=== PATIENT | female | born 1950 | race African-American/Black ===

== ENCOUNTER → 2018-12-02 | Outpatient (CLI) | payer MEDICARE | END | disposition home or self-care (01) | LOC: CFH 09:42 | PROVIDERS: ATTEND Family Medicine | DX: Z12.31 Encounter for screening mammogram for malignant neoplasm of breast (principal) | CPT/HCPCS: 77067 ==

== ENCOUNTER → 2020-08-17 | Outpatient (CLI) | payer MEDICARE ==
[~2020-08-17] MED LIST: CITA40TA12 PO; ENAL20TA68 PO; TRAM50TA2 PO; TRAZ50TA66 PO
[2020-08-17 14:08] LABS: BASOPHILS % (AUTO) 1 % (0-1); EOSINOPHILS % (AUTO) 4 % (1-7); LYMPHOCYTES % (AUTO) 40 % (22-44); MEAN CORPUSCULAR HEMOGLOBIN 27.4 pg (27.0-34.8); MEAN CORPUSCULAR HGB CONC 31.4 g/dL (32.4-35.8); MEAN PLATELET VOLUME 7.6 fL (7.4-10.4); MONOCYTES % (AUTO) 10 % (2-9); NEUTROPHILS % (AUTO) 45 % (42-75); PLATELET COUNT 229 x10^3/uL (130-400); RED BLOOD COUNT 4.38 x10^6/uL (3.82-5.3); RED CELL DISTRIBUTION WIDTH 14.6 % (9.6-15.2)
[2020-08-17 14:11] LABS: MD NO
[2020-08-17 14:16] LABS: CHLORIDE 109 mmol/L (98-107)
[2020-08-17 14:38] LABS: ALANINE AMINOTRANSFERASE 36 U/L (12-78); ALBUMIN 3.7 g/dL (3.4-5.0); ALKALINE PHOSPHATASE 96 U/L (45-117); ANION GAP 6 mmol/L (5-15); BILIRUBIN,TOTAL 0.4 mg/dL (0.2-1.0); CALCIUM 9.1 mg/dL (8.5-10.1); CREATININE 0.77 mg/dL (0.55-1.02); INTERNATIONAL NORMALIZED RATIO 1.01 (0.93-1.1); PROTHROMBIN TIME 10.7 Seconds (9.6-11.5); TOTAL PROTEIN 7.2 g/dL (6.4-8.2)
== END | disposition home or self-care (01) ==
LOC: STAR 12:44
PROVIDERS: ATTEND Orthopaedic Surgery
DX: Z01.812 Encounter for preprocedural laboratory examination (principal); Z20.828 Contact with and (suspected) exposure to other viral communicable diseases; M17.12 Unilateral primary osteoarthritis, left knee
CPT/HCPCS: 36415; 80053; 83036; 85025; 85610; 85730; 87081; 87635; 93005

== ENCOUNTER 2020-08-24 08:41 | Observation (INO) | payer MEDICARE ==
[~2020-08-24] VITALS: Ht 162.6 cm; Wt 114.5 kg
[~2020-08-24 08:41] MED LIST changes: +ACETAMINOPHEN 650 MG/20.3 ML UDC PO PRN; +BISACODYL 10 MG SUPP PR PRN; +DIPHENHYDRAMINE 50 MG CAPSULE PO PRN; +EPINEPHRINE 1 MG/ML, 1ML ONE; +HYDROcodone/APAP 5/325 TABLET PO PRN; +HYDROmorphone 1 MG/ML, 1ML INJ IV PRN; +KETOROLAC 60 MG/2 ML ONE; +MAGNESIUM HYDROXIDE 8%, 30ML UDC PO PRN; +ONDANSETRON 2MG/ML, 2ML IV PRN; +ONDANSETRON 4 MG TABLET PO PRN; +OXYcodone IR 5MG TABLET PO PRN; +ROPIvacaine/PF 0.2%, 20 ML ONE; +ROPIvacaine/PF 0.5%, 20 ML ONE; +ROPIvacaine/PF 0.5%, 30 ML ONE; +SENNA/DOCUSATE TABLET PO PRN; +SODIUM CHLORIDE 0.9% 50 ML ONE; +TRANEXAMIC ACID 100 MG/ML, 10ML ONE; +VANCOMYCIN 500 MG ONE; +ZOLPIDEM 5MG TABLET PO PRN
[2020-08-24] MEDS ORDERED: FENTANYL PF 250 MCG/5ML ONE (08:55)
[2020-08-24] MEDS ORDERED: MIDAZOLAM 1 MG/ML, 2ML ONE (08:55)
[2020-08-24] MEDS ORDERED: ENALAPRIL 20MG TABLET PO SCH ×2 (09:00→21:00)
[2020-08-24] MEDS ORDERED: CHLORHEXIDINE 15 ML UDC MM ONE (09:00)
[2020-08-24] MEDS ORDERED: CHLORHEXIDINE 15 ML UDC ONE (09:09)
[2020-08-24] MEDS ORDERED: GABAPENTIN 300 MG CAPSULE ONE (09:09)
[2020-08-24] MEDS ORDERED: ACETAMINOPHEN 500 MG TABLET ONE (09:09)
[2020-08-24] MEDS ORDERED: LIDOCAINE-MPF 1%, 2ML INFIL ONE (09:30)
[2020-08-24] MEDS ORDERED: LACTATED RINGERS 1,000 ML IV SCH (09:30)
[2020-08-24] MEDS ORDERED: ACETAMINOPHEN 500 MG TABLET PO ONE (09:30)
[2020-08-24] MEDS ORDERED: GABAPENTIN 300 MG CAPSULE PO ONE (09:30)
[2020-08-24] MEDS ORDERED: ROCURONIUM 10MG/ML,5ML ONE (09:51)
[2020-08-24] MEDS ORDERED: SUGAMMADEX 200 MG/2 ML IVPush ONE (09:51)
[2020-08-24] MEDS ORDERED: CEFAZOLIN 1,000 MG ONE (09:51)
[2020-08-24] MEDS ORDERED: PROPOFOL 10 MG/ML, 20ML ONE (09:51)
[2020-08-24] MEDS ORDERED: DEXAMETHASONE 4 MG/ML, 1ML ONE (09:51)
[2020-08-24] MEDS ORDERED: ONDANSETRON 2MG/ML, 2ML IVPush PRN (10:00)
[2020-08-24] MEDS ORDERED: OXYcodone 5 MG/5 ML ORAL.SOL UDC PO PRN (10:00)
[2020-08-24] MEDS ORDERED: MEPERIDINE/PF 25MG/0.5ML IVPush PRN (10:00)
[2020-08-24] MEDS ORDERED: FENTANYL PF 100 MCG/2ML IV PRN (10:00)
[2020-08-24] MEDS ORDERED: PROMETHAZINE 25 MG/ML, 1ML IVPush PRN (10:00)
[2020-08-24] MEDS ORDERED: HYDROmorphone 1 MG/ML, 1ML INJ IVPush PRN (10:00)
[2020-08-24] MEDS ORDERED: hydrALAzine 20 MG/ML, 1ML IV PRN (10:00)
[2020-08-24] MEDS ORDERED: DIPHENHYDRAMINE 50 MG/ML, 1ML IVPush PRN (10:00)
[2020-08-24] MEDS ORDERED: DIAZEPAM 5 MG/ML, 2ML IVPush PRN (10:00)
[2020-08-24] MEDS ORDERED: LABETALOL 5MG/ML, 20ML IV PRN (10:00)
[2020-08-24] MEDS ORDERED: CEFAZOLIN PMX 2GM/50ML 50 ML IVPB SCH (13:30)
[2020-08-24] MEDS: CITALOPRAM 20 MG TABLET PO SCH (13:33)
[2020-08-24] MEDS: NS + 20MEQ KCL 1,000 ML IV SCH (13:33)
[2020-08-24] MEDS: DOCUSATE 100 MG CAPSULE PO SCH ×2 (13:34→21:21)
[2020-08-24 14:35] VITALS: BP 134/80
[2020-08-24] MEDS: CEFAZOLIN PMX 2GM/50ML 50 ML IVPB SCH (17:54)
[2020-08-24] MEDS: ASPIRIN 81 MG TABLET EC PO SCH (17:54)
[2020-08-24 18:54] VITALS: BP 112/70
[2020-08-24] MEDS ORDERED: TRAZODONE 50MG TABLET PO SCH (21:00)
[2020-08-24] MEDS: ENALAPRIL 10 MG TABLET PO SCH (23:30)
[2020-08-25 00:41] VITALS: BP 112/57
[2020-08-25] MEDS: NS + 20MEQ KCL 1,000 ML IV SCH ×2 (01:08→13:38)
[2020-08-25] MEDS: CEFAZOLIN PMX 2GM/50ML 50 ML IVPB SCH (02:09)
[2020-08-25 05:12] VITALS: BP 123/61
[2020-08-25] MEDS ORDERED: DEXAMETHASONE 4 MG/ML, 1ML IVPush SCH (06:00)
[2020-08-25] MEDS: ASPIRIN 81 MG TABLET EC PO SCH (06:37)
[2020-08-25] MEDS ORDERED: ENALAPRIL 5MG TABLET ONE (08:02)
[2020-08-25] MEDS: DOCUSATE 100 MG CAPSULE PO SCH (08:04)
[2020-08-25] MEDS: CITALOPRAM 20 MG TABLET PO SCH (08:04)
[2020-08-25] MEDS: ENALAPRIL 10 MG TABLET PO SCH (08:05)
[2020-08-25 09:00] VITALS: BP 108/75
[2020-08-25] MEDS ORDERED: OXYC5CAP2 PO (09:20)
[2020-08-25] MEDS ORDERED: TRAM50TA2 PO (09:21)
[2020-08-25] MEDS ORDERED: MELO7.5T31 PO (09:21)
[2020-08-25 14:31] VITALS: BP 111/72
== END 2020-08-25 15:20 | disposition home or self-care (01) ==
LOC: OUT 08:41 → 3WST 12:32 → OUT 20:47 → DCLOUNGE 08-25 15:10
PROVIDERS: ADMIT Orthopaedic Surgery; ATTEND Orthopaedic Surgery
DX: M17.12 Unilateral primary osteoarthritis, left knee (principal); Z20.828 Contact with and (suspected) exposure to other viral communicable diseases; I49.5 Sick sinus syndrome; I25.10 Atherosclerotic heart disease of native coronary artery without angina pectoris; I10 Essential (primary) hypertension; E78.5 Hyperlipidemia, unspecified; E66.01 Morbid (severe) obesity due to excess calories; Z95.0 Presence of cardiac pacemaker; Z96.652 Presence of left artificial knee joint; Z79.899 Other long term (current) drug therapy
CPT/HCPCS: 27447; 36415; 85014; 85018; 87635; 96361; 96365; 96366; 96375; 97162; 97166; C1713; C1776; G0378; J0171; J0690; J1100; J1885; J2250; J2704; J2795; J3010; J3370; J3480; J7120

== ENCOUNTER → 2020-12-08 | Outpatient (CLI) | payer MEDICARE ==
[~2020-12-08] MED LIST changes: -ACETAMINOPHEN 650 MG/20.3 ML UDC PO PRN; -BISACODYL 10 MG SUPP PR PRN; +CLON1TAB11 PO; -DIPHENHYDRAMINE 50 MG CAPSULE PO PRN; +ENAL10TA9 PO; -EPINEPHRINE 1 MG/ML, 1ML ONE; -HYDROcodone/APAP 5/325 TABLET PO PRN; -HYDROmorphone 1 MG/ML, 1ML INJ IV PRN; -KETOROLAC 60 MG/2 ML ONE; -MAGNESIUM HYDROXIDE 8%, 30ML UDC PO PRN; +MELO7.5T31 PO; -ONDANSETRON 2MG/ML, 2ML IV PRN; -ONDANSETRON 4 MG TABLET PO PRN; +OXYC5CAP2 PO; -OXYcodone IR 5MG TABLET PO PRN; +PRAV10TA2 PO; -ROPIvacaine/PF 0.2%, 20 ML ONE; -ROPIvacaine/PF 0.5%, 20 ML ONE; -ROPIvacaine/PF 0.5%, 30 ML ONE; -SENNA/DOCUSATE TABLET PO PRN; -SODIUM CHLORIDE 0.9% 50 ML ONE; -TRANEXAMIC ACID 100 MG/ML, 10ML ONE; -VANCOMYCIN 500 MG ONE; -ZOLPIDEM 5MG TABLET PO PRN
[2020-12-08 12:02] LABS: BASOPHILS % (AUTO) 1 % (0-1); EOSINOPHILS % (AUTO) 2 % (1-7); LYMPHOCYTES % (AUTO) 35 % (22-44); MD NO; MEAN CORPUSCULAR HEMOGLOBIN 25.9 pg (27.0-34.8); MEAN CORPUSCULAR HGB CONC 31.8 g/dL (32.4-35.8); MEAN PLATELET VOLUME 8.4 fL (7.4-10.4); MONOCYTES % (AUTO) 10 % (2-9); NEUTROPHILS % (AUTO) 52 % (42-75); PLATELET COUNT 249 x10^3/uL (130-400); RED CELL DISTRIBUTION WIDTH 16.3 % (9.6-15.2)
[2020-12-08 12:15] LABS: INTERNATIONAL NORMALIZED RATIO 1.02 (0.93-1.1); PROTHROMBIN TIME 10.9 Seconds (9.6-11.5)
[2020-12-08 12:16] LABS: ALBUMIN 3.7 g/dL (3.4-5.0); ANION GAP 7 mmol/L (5-15); CALCIUM 8.8 mg/dL (8.5-10.1); CHLORIDE 110 mmol/L (98-107)
[2020-12-08 12:22] LABS: ALANINE AMINOTRANSFERASE 24 U/L (12-78); ALKALINE PHOSPHATASE 89 U/L (45-117); BILIRUBIN,TOTAL 0.4 mg/dL (0.2-1.0); CREATININE 0.79 mg/dL (0.55-1.02); TOTAL PROTEIN 7.2 g/dL (6.4-8.2)
== END | disposition home or self-care (01) ==
LOC: STAR 09:58
PROVIDERS: ATTEND Orthopaedic Surgery
DX: Z01.810 Encounter for preprocedural cardiovascular examination (principal); Z01.818 Encounter for other preprocedural examination; M25.561 Pain in right knee; M17.11 Unilateral primary osteoarthritis, right knee; Z79.01 Long term (current) use of anticoagulants; Z20.822 Contact with and (suspected) exposure to COVID-19
CPT/HCPCS: 80053; 83036; 85025; 85610; 85730; 87081; 87635; 93005

== ENCOUNTER 2020-12-14 05:26 | Observation (INO) | payer MEDICARE ==
[~2020-12-14] VITALS: Ht 165.1 cm; Wt 114.5 kg
[2020-12-14] MEDS ORDERED: CITA40TA12 PO (06:00)
[2020-12-14] MEDS ORDERED: CHLORHEXIDINE 15 ML UDC MM ONE (06:00)
[2020-12-14] MEDS ORDERED: LACTATED RINGERS 1,000 ML IV SCH (06:00)
[2020-12-14] MEDS ORDERED: ACETAMINOPHEN 500 MG TABLET PO ONE (06:00)
[2020-12-14] MEDS ORDERED: GABAPENTIN 300 MG CAPSULE PO ONE (06:00)
[2020-12-14] MEDS ORDERED: MIDAZOLAM 1 MG/ML, 2ML ONE (06:24)
[2020-12-14] MEDS ORDERED: FENTANYL PF 250 MCG/5ML ONE ×2 (06:24→07:41)
[2020-12-14] MEDS ORDERED: TRANEXAMIC ACID 100 MG/ML, 10ML ONE ×2 (06:26)
[2020-12-14] MEDS ORDERED: KETOROLAC 60 MG/2 ML ONE (06:26)
[2020-12-14] MEDS ORDERED: ROPIvacaine/PF 0.5%, 20 ML ONE (06:27)
[2020-12-14] MEDS ORDERED: ROPIvacaine/PF 0.5%, 30 ML ONE (06:27)
[2020-12-14] MEDS ORDERED: SODIUM CHLORIDE 0.9% 50 ML ONE (06:27)
[2020-12-14] MEDS ORDERED: VANCOMYCIN 1,000 MG ONE (06:27)
[2020-12-14] MEDS ORDERED: EPINEPHRINE 1 MG/ML, 1ML ONE (06:27)
[2020-12-14] MEDS ORDERED: DEXAMETHASONE 4 MG/ML, 1ML ONE (06:51)
[2020-12-14] MEDS ORDERED: HYDROmorphone 1 MG/ML, 1ML INJ IV PRN (07:00)
[2020-12-14] MEDS ORDERED: SENNA/DOCUSATE TABLET PO PRN (07:00)
[2020-12-14] MEDS ORDERED: HYDROcodone/APAP 5/325 TABLET PO PRN (07:00)
[2020-12-14] MEDS ORDERED: ONDANSETRON 4 MG TABLET PO PRN (07:00)
[2020-12-14] MEDS ORDERED: ONDANSETRON 2MG/ML, 2ML IV PRN (07:00)
[2020-12-14] MEDS ORDERED: DIPHENHYDRAMINE 50 MG CAPSULE PO PRN (07:00)
[2020-12-14] MEDS ORDERED: BISACODYL 10 MG SUPP PR PRN (07:00)
[2020-12-14] MEDS ORDERED: ACETAMINOPHEN 650 MG/20.3 ML UDC PO PRN (07:00)
[2020-12-14] MEDS ORDERED: MAGNESIUM HYDROXIDE 8%, 30ML UDC PO PRN (07:00)
[2020-12-14] MEDS ORDERED: ZOLPIDEM 5MG TABLET PO PRN (07:00)
[2020-12-14] MEDS ORDERED: PROPOFOL 50 ML ONE (07:18)
[2020-12-14] MEDS ORDERED: GLYCOPYRROLATE 0.2MG/1ML, 5ML ONE (07:44)
[2020-12-14] MEDS ORDERED: ONDANSETRON 2MG/ML, 2ML ONE (07:44)
[2020-12-14] MEDS ORDERED: NEOSTIGMINE 1 MG/ML, 10ML ONE (07:44)
[2020-12-14] MEDS ORDERED: CEFAZOLIN 1,000 MG ONE (07:44)
[2020-12-14] MEDS ORDERED: SUCCINYLCHOLINE 20 MG/ML, 10ML ONE (07:44)
[2020-12-14] MEDS ORDERED: ROCURONIUM 10MG/ML,5ML ONE (07:44)
[2020-12-14] MEDS ORDERED: PROPOFOL 10 MG/ML, 20ML ONE (07:44)
[2020-12-14] MEDS ORDERED: DIAZEPAM 5 MG/ML, 2ML IVPush PRN (08:00)
[2020-12-14] MEDS ORDERED: LABETALOL 5MG/ML, 20ML IV PRN (08:00)
[2020-12-14] MEDS ORDERED: PROMETHAZINE 25 MG/ML, 1ML IVPush PRN (08:00)
[2020-12-14] MEDS ORDERED: EPHEDRINE 50 MG/ML, 1ML IVPush PRN (08:00)
[2020-12-14] MEDS ORDERED: METHOCARBAMOL 1,000 MG in DEXTROSE 5% 100 ML IV PRN (08:00)
[2020-12-14] MEDS ORDERED: hydrALAzine 20 MG/ML, 1ML IV PRN (08:00)
[2020-12-14] MEDS ORDERED: MEPERIDINE/PF 25MG/0.5ML IVPush PRN (08:00)
[2020-12-14] MEDS ORDERED: OXYcodone 5 MG/5 ML ORAL.SOL UDC PO PRN (08:00)
[2020-12-14] MEDS ORDERED: ONDANSETRON 2MG/ML, 2ML IVPush PRN (08:00)
[2020-12-14] MEDS ORDERED: ACETAMINOPHEN 325 MG TABLET PO PRN (08:00)
[2020-12-14] MEDS ORDERED: FENTANYL PF 100 MCG/2ML ONE ×2 (08:34→09:05)
[2020-12-14] MEDS ORDERED: OXYcodone 5 MG/5 ML ORAL.SOL UDC ONE (08:34)
[2020-12-14] MEDS: FENTANYL PF 100 MCG/2ML IV PRN ×4 (08:41→18:19)
[2020-12-14] MEDS ORDERED: HYDROmorphone 1 MG/ML, 1ML INJ ONE (08:42)
[2020-12-14] MEDS: HYDROmorphone 1 MG/ML, 1ML INJ IVPush PRN ×2 (08:53→09:00)
[2020-12-14] MEDS: DOCUSATE 100 MG CAPSULE PO SCH ×2 (09:00→20:14)
[2020-12-14] MEDS: ENALAPRIL 10 MG TABLET PO SCH ×2 (09:00→20:14)
[2020-12-14] MEDS: CITALOPRAM 20 MG TABLET PO SCH (09:00)
[2020-12-14] MEDS ORDERED: SUGAMMADEX 200 MG/2 ML IVPush ONE (09:31)
[2020-12-14] MEDS: CEFAZOLIN PMX 2GM/50ML 50 ML IVPB SCH ×2 (15:37→23:37)
[2020-12-14] MEDS: OXYcodone IR 5MG TABLET PO PRN ×2 (16:59→23:38)
[2020-12-14 19:54] VITALS: BP 128/70
[2020-12-14] MEDS ORDERED: ENALAPRIL 5MG TABLET ONE (20:10)
[2020-12-14] MEDS: ASPIRIN 81 MG TABLET EC PO SCH (20:14)
[2020-12-14 20:33] VITALS: BP 128/70
[2020-12-14] MEDS: NS + 20MEQ KCL 1,000 ML IV SCH (23:37)
[2020-12-15 00:10] VITALS: BP 158/81
[2020-12-15] MEDS: OXYcodone IR 5MG TABLET PO PRN ×3 (03:58→11:42)
[2020-12-15] MEDS: NS + 20MEQ KCL 1,000 ML IV SCH (05:04)
[2020-12-15] MEDS: ASPIRIN 81 MG TABLET EC PO SCH (05:37)
[2020-12-15] MEDS ORDERED: DEXAMETHASONE 4 MG/ML, 1ML IVPush SCH (06:00)
[2020-12-15 06:50] VITALS: BP 143/73
[2020-12-15] MEDS: CITALOPRAM 20 MG TABLET PO SCH (07:56)
[2020-12-15] MEDS: ENALAPRIL 10 MG TABLET PO SCH (07:57)
[2020-12-15] MEDS: DOCUSATE 100 MG CAPSULE PO SCH (07:57)
[2020-12-15] MEDS ORDERED: OXYC5CAP2 PO (08:22)
[2020-12-15] MEDS ORDERED: TRAM50TA2 PO (08:22)
[2020-12-15] MEDS ORDERED: MELO7.5T31 PO (08:23)
== END 2020-12-15 12:05 | disposition home or self-care (01) ==
LOC: OUT 05:26 → ORIP 15:03 → 4NE 18:09 → DCLOUNGE 12-15 11:59
PROVIDERS: ADMIT Orthopaedic Surgery; ATTEND Orthopaedic Surgery
DX: M17.11 Unilateral primary osteoarthritis, right knee (principal); I10 Essential (primary) hypertension; I49.5 Sick sinus syndrome; I25.10 Atherosclerotic heart disease of native coronary artery without angina pectoris; E78.5 Hyperlipidemia, unspecified; E66.01 Morbid (severe) obesity due to excess calories; Z79.899 Other long term (current) drug therapy; Z96.651 Presence of right artificial knee joint
CPT/HCPCS: 27447; 36415; 85014; 85018; 96365; 96375; 97110; 97116; 97162; 97166; 97530; C1713; C1776; G0378; J0171; J0330; J0690; J1100; J1170; J1885; J2250; J2405; J2704; J2710; J2795; J3010; J3370; J3480; J7120